=== PATIENT | female | born 1980 | race Caucasian/White ===

== ENCOUNTER 2019-09-19 15:54 | Emergency (ER) | payer OTHER ==
[~2019-09-19] VITALS: Ht 165.1 cm; Wt 57.2 kg
[2019-09-19] MEDS ORDERED: CLONAZEPAM2 MG PO (16:11)
[2019-09-19] MEDS ORDERED: LAMICTAL100 MG PO (16:11)
[2019-09-19] MEDS ORDERED: CONCEPT OB CAP1 EACH PO (16:12)
== END 2019-09-19 20:43 | disposition home or self-care (01) ==
LOC: ER 15:54
DX: O46.8X1 Other antepartum hemorrhage, first trimester (principal); O26.891 Other specified pregnancy related conditions, first trimester; R10.2 Pelvic and perineal pain

== ENCOUNTER 2021-03-14 11:09 | Emergency (ER) | payer OTHER ==
[~2021-03-14] VITALS: Ht 160 cm; Wt 59.0 kg
[~2021-03-14 11:09] MED LIST: CLONAZEPAM2 MG PO; CONCEPT OB CAP1 EACH PO; LAMICTAL100 MG PO
[2021-03-14] MEDS ORDERED: AMITRIPTYLINE HC5 GM MC (11:36)
[2021-03-14] MEDS ORDERED: MUPIROCIN1 G1 TOP (15:46)
== END 2021-03-14 15:51 | disposition home or self-care (01) ==
LOC: ER 11:09
DX: Z32.01 Encounter for pregnancy test, result positive (principal)